=== PATIENT | female | born 1930 | race African-American/Black ===

== ENCOUNTER 2017-08-21 08:59 | Outpatient (CLI) | payer MEDICARE, MEDICAID | END 2017-08-21 09:00 | disposition home or self-care (01) | LOC: BICRAD 08:59 | PROVIDERS: ATTEND Family Medicine | DX: M81.0 Age-related osteoporosis without current pathological fracture (principal); M47.896 Other spondylosis, lumbar region; M43.8X6 Other specified deforming dorsopathies, lumbar region; M47.894 Other spondylosis, thoracic region; M43.8X4 Other specified deforming dorsopathies, thoracic region; M41.84 Other forms of scoliosis, thoracic region; I77.819 Aortic ectasia, unspecified site | CPT/HCPCS: 71045; 72072; 72100; 74018 ==

== ENCOUNTER 2017-08-22 08:54 | Outpatient (CLI) | payer MEDICARE, MEDICAID | END 2017-08-22 08:55 | disposition home or self-care (01) | LOC: BICMAMMO 08:54 | PROVIDERS: ATTEND Family Medicine | DX: M81.0 Age-related osteoporosis without current pathological fracture (principal) | CPT/HCPCS: 77080 ==

== ENCOUNTER 2017-11-25 23:17 | Inpatient (IN) | payer MEDICARE, MEDICAID ==
[2017-11-25] MEDS ORDERED: Ondansetron HCl/PF 4 MG/2 ML Vial ONE (23:54)
[2017-11-26 00:42] LABS: #Lymphocytes 0.8 thou/uL (1.20-3.40); #Monocytes 0.1 thou/uL (0.11-0.59); %Basophils 0.2 % (0.0-1.0); %Eosinophils 0.6 % (0.0-10.0); %Lymphocytes 10.8 % (21.0-51.0); %Neutrophils 86.4 % (42.0-75.0); Hemoglobin 11.8 g/dL (12.0-16.0); Mean Corpuscular HGB CONC 33.7 g/dL (32.0-36.0); Mean Corpuscular Hemoglobin 29.1 pg (27.0-31.0); Mean Corpuscular Volume 86.2 fL (78.0-98.0); Mean Platelet Volume 7.7 fL (7.4-10.4); Platelet Count 223 thou/uL (130-400); RBC Distribution Width 11.9 % (11.5-14.5); Red Blood Cell (RBC) Count 4.05 mill/uL (4.20-5.40); White Blood Cell (WBC) Count 6.9 thou/uL (4.8-10.8)
[2017-11-26 01:13] LABS: ALT (SGPT) 15 U/L (8-55); AST (SGOT) 28 U/L (5-34); Albumin 4.3 g/dL (3.4-4.8); Alkaline Phosphatase 85 U/L (40-150); Anion Gap 16 mmol/L (10-20); BUN (Urea Nitrogen) 14 mg/dL (9.8-20.1); Bilirubin, Total 0.4 mg/dL (0.2-1.2); Calc. Creatinine Clearance 0 mL/min (70-130); Calcium 10.4 mg/dL (7.8-10.44); Carbon Dioxide 23 mmol/L (23-31); Chloride 98 mmol/L (98-107); Estimated GFR-MDRD 70; Globulin 3.9 g/dL (2.4-3.5); Glucose 175 mg/dL (83-110); Lipase 48 U/L (8-78); Potassium 4.5 mmol/L (3.5-5.1); Protein, Total 8.2 g/dL (6.0-8.3); Sodium 132 mmol/L (136-145)
[2017-11-26 02:13] LABS: CKMB 1.1 ng/mL (0-6.6); Troponin I Less than 0.010 ng/mL (< 0.028)
[2017-11-26 02:13] LABS: Bilirubin Negative (Negative); Blood, Urine Negative (Negative); Clarity CLEAR (Clear); Glucose, Urine (Dipstick) Negative (Negative); Leukocyte Negative (Negative); Nitrite Negative (Negative); Protein, Urine (Dipstick) Trace mg/dL (Neg-Trace); Specific Gravity, Urine 1.007 (1.002-1.036); Urobilinogen 0.2 mg/dL (0.2-1.0); pH, Urine 7.5 (5.0-9.0)
[2017-11-26] MEDS ORDERED: Ondansetron HCl/PF 4 MG/2 ML Vial IVP PRN ×3 (06:11→12:39)
[2017-11-26] MEDS ORDERED: Lactated Ringer's 1,000 ML IV SCH (06:11)
[2017-11-26] MEDS ORDERED: Ondansetron ODT 4 MG TAB SL PRN (06:11)
[2017-11-26] MEDS ORDERED: Fentanyl 100 MCG/2 ML VIAL SLOW IVP PRN (06:12)
[2017-11-26 08:25] VITALS: BMI 19.9
--- NOTE | 2017-11-26 09:03 | HP ---
DATE OF ADMISSION: 11/26/2017 CHIEF COMPLAINT: Nausea, vomiting. HISTORY OF PRESENT ILLNESS: This is an 87-year-old female who in 2017 underwent left colectomy and c olostomy by Dr. Rosenberg for perforated diverticulitis. She has been doing quite well since then, but n ow presents with nausea, vomiting, abdominal distention. She has no abdominal pain. CT scan shows e vidence of hernia at her colostomy site. The patient denies pain this morning. Her nausea is improv ed. She has had an NG tube placed, but it is nonbilious output. PAST MEDICAL HISTORY: Includes hypertension, peripheral vascular disease, diverticulosis, diverticul itis. PAST SURGICAL HISTORY: Carotid endarterectomy, history of EGD, colonoscopy, history of total hystere ctomy, history of end-colostomy and resection of sigmoid by Dr. Rosenberg. SOCIAL HISTORY: Lives at home. She is independent. No smoking, alcohol or other drugs. MEDICINES: Include Coreg, Norvasc. ALLERGIES: No known drug allergies. FAMILY HISTORY: Nonsignificant for GI malignancy. REVIEW OF SYSTEMS: Ten system review of systems otherwise negative unless described above. PHYSICAL EXAMINATION: VITAL SIGNS: Blood pressure is 165/86, pulse 89, respirations 16. She is afebrile. HEENT: Sclerae are anicteric. Oropharynx clear. NECK: No lymphadenopathy. CHEST: Clear. HEART: Regular rate and rhythm. ABDOMEN: Soft, minimally tender in the area of the colostomy without guarding or rebound. No abdomi nal inguinal hernias. EXTREMITIES: No ischemia or edema to extremities. LABORATORY DATA AND IMAGING: White blood cell count is 6, hemoglobin 11, platelet count is 223. Cre atinine 0.92. CT scan reviewed. It does appear to be what could be a small parastomal hernia. 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 Even though she has no pain, cannot rul e out a strangulation or incarceration. PLAN: I think the safest thing to do is a laparoscopy, if she does have a loop of intestine th e colostomy could certainly become ischemic and she could be not hurting due to her advanced age. Pl an, diagnostic laparoscopy today. Risks, benefits, alternatives discussed. She gives consent. We w ill do this today.
--- NOTE | 2017-11-26 09:17 | CT ---
PRELIMINARY REPORT/[facility]/EMERGENTY AFTER-HOURS PROCEDURE CT Abdomen and Pelvis With Intravenous Contrast CLINICAL HISTORY: 87 years old, female; Signs and symptoms; Nausea and vomiting; Prior surgery; Patient HX: Er 7; Pt is a 87 yo female who presents with acute onset of emesis non bloody and non bilious no associated pain . Noted feeling dizzy at the onset. Son reported that patient has not had much output from colostomy. Colostomy has been present for 2 years. Denies chest pain, shortness of breath, fever/chil ls. No new medications or antibiotics. Surgical history of hysterectomy, carotidendarderectomy. Colos mayela TECHNIQUE: Axial computed tomography images of the abdomen and pelvis with intravenous contrast. Coronal reformatted images were created and reviewed. COMPARISON: No relevant prior studies available. FINDINGS: Lung bases: Minimal bibasilar atelectasis and/or scarring. ABDOMEN: Liver: Normal. Gallbladder and bile ducts: Normal. Pancreas: Normal. Spleen: Normal. Adrenals: Normal. Kidneys and ureters: Bilateral simple renal cysts, the largest on the left measuring approximately 2. 5 cm in diameter. Stomach and bowel: Small bowel containing parastomal hernia, with associated proximal small bowel obs truction. No evidence of bowel strangulation. Left lower quadrant colostomy. PELVIS: Appendix: No findings to suggest acute appendicitis. Bladder: Normal. Reproductive: Uterus is surgically absent. ABDOMEN and PELVIS: Intraperitoneal space: Normal. No free air. No significant fluid collection. Bones/joints: Degenerative changes of the hips and sacroiliac joints. Multilevel thoracolumbar spine degenerative changes, with dextroscoliosis of the lumbar spine. No acute fracture. No dislocation. Soft tissues: See above. Vasculature: Atherosclerotic disease of the visualized distal thoracic aorta. Extensive atherosclerot ic disease of the abdominal aorta and iliac arteries. No abdominal aortic aneurysm. Lymph nodes: Normal. IMPRESSION: 1. Small bowel containing parastomal hernia, with associated proximal small bowel obstruction. No jaycob dence of bowel strangulation. 2. Incidental/non-acute findings are described above. Thank you for allowing us to participate in the care of your patient. Dictated and Authenticated by: Steve Deutsch MD 11/26/2017 3:18 AM Central Time ([place] & [place]) FINAL REPORT CT ABDOMEN AND PELVIS WITH IV CONTRAST AND WITH ORAL CONTRAST: There is a parastomal hernia in the left anterior abdominal wall. Small bowel loops moving into this parastomal hernia are dilated and measured up to 3.4 cm. The distal small bowel loops are decompres sed. IMPRESSION: There is a parastomal anterior abdominal wall hernia on the left which is producing small bowel obstr uction. I am in agreement with the preliminary report. POS: JEAN CLAUDE
[2017-11-26] MEDS ORDERED: Carvedilol 25 MG TAB PO SCH (09:45)
[2017-11-26] MEDS ORDERED: Fentanyl 100 MCG/2 ML VIAL ONE (10:38)
[2017-11-26] MEDS ORDERED: CEFAZOLIN/Water 2 GM/20 ML SYRINGE ONE (10:41)
[2017-11-26] MEDS ORDERED: Bupivacaine/Epinephrine 0.25% 30 ML VIAL ONE (10:46)
[2017-11-26] MEDS ORDERED: Promethazine HCl 25 MG/ML VIAL SLOW IVP PRN (11:08)
[2017-11-26] MEDS ORDERED: Promethazine HCl 25 MG/ML VIAL IM PRN ×2 (11:08→12:39)
[2017-11-26] MEDS ORDERED: Meperidine HCl/PF 25 MG/ML VIAL SLOW IVP PRN (11:08)
[2017-11-26] MEDS ORDERED: Morphine 4 MG/ML VIAL SLOW IVP PRN (12:39)
[2017-11-26] MEDS ORDERED: Dextrose 50% Abboject 50 ML SYRINGE SLOW IVP PRN (12:39)
[2017-11-26] MEDS ORDERED: Dextrose 5% in Water 1,000 ML IV PRN (12:39)
[2017-11-26] MEDS ORDERED: Acetaminophen 1,000 MG in Premix Bag 1 BAG IVPB PRN (12:39)
[2017-11-26] MEDS ORDERED: Iopamidol 370 76% 50 ML VIAL FS ONE (14:00)
[2017-11-26] MEDS ORDERED: ISOVUE-370 76%-LOCM 1 ML ONE (14:00)
[2017-11-26] MEDS ORDERED: ePHEDrine/0.9% NaCl/PF SYRINGE 50 mg/10 ml ONE (15:25)
[2017-11-26] MEDS ORDERED: PHENYLEPHRINE-NS 100 MCG/ML 10 ML SYRINGE ONE (15:25)
[2017-11-26] MEDS ORDERED: Glycopyrrolate 0.2 MG/ML 5 ML SYRINGE ONE (15:25)
[2017-11-26] MEDS ORDERED: Dexamethasone 20 MG/5 ML VIAL ONE (15:25)
[2017-11-26] MEDS ORDERED: Lidocaine 1% PF 5 ML VIAL ONE (15:25)
[2017-11-26] MEDS ORDERED: Ondansetron HCl/PF 4 MG/2 ML Vial ONE (15:25)
[2017-11-26] MEDS ORDERED: PROPOFOL 200 MG/20 ML VIAL ONE (15:25)
[2017-11-26] MEDS ORDERED: Succinylcholine Chloride 20 MG/ML 10 ml SYRINGE FS ONE (15:25)
--- NOTE | 2017-11-26 16:35 | OP ---
DATE OF SERVICE: 11/26/2017 PREOPERATIVE DIAGNOSIS: Incarcerated parastomal hernia. POSTOPERATIVE DIAGNOSIS: Incarcerated parastomal hernia. PROCEDURE: Incarcerated parastomal hernia repair without mesh laparoscopic. SURGEON: Thomas Diana M.D. ANESTHESIA: General. ESTIMATED BLOOD LOSS: Minimal. COMPLICATIONS: None. SPECIMEN: None. TECHNIQUE: The patient was taken to the operating room, placed supine on the table. After general a nesthetic was obtained, a Berrios was placed. The abdomen was prepped and draped in a sterile fashion. Left subcostal 5-mm Optiview trocar placed without injury and high-flow pneumoperitoneum was obtain ed. Three right abdominal pulmonary ports were placed. Multiple adhesions are taken down in the lef t lower quadrant near the previous colostomy. There is a small bowel loop on the lateral side that i s up into the colostomy defect, they were larger than normal hole in the muscle. This would be reduc ed down without difficulty. No damage to any intraabdominal structures during the dissection, 0 V-Lo c is used to reapproximate the lateral aspect of the colostomy muscle defect. Care was taken to avoi d making it too tight against the colostomy itself. At the end of the procedure, a finger was able t o be placed through the fascial opening into the colostomy proximal mucosa without difficulty. No in jury to any intra-abdominal structures. All port sites were infiltrated using local anesthetic. All ports are removed under camera visualization and Pneumoperitoneum was let down. A 4-0 Monocryl and Dermabond used to close all skin incisions. A colostomy device is placed. The patient was en route to recovery in stable condition. All sponge counts, needle counts, lap counts were correct.
[2017-11-26] MEDS: Sodium Chloride 0.9% 1,000 ML IV SCH (17:24)
[2017-11-26] MEDS: Famotidine/PF 20 mg/2ml Vial SLOW IVP SCH (20:42)
[2017-11-26] MEDS: Enoxaparin Sodium 30 MG/0.3 ML SYRINGE SC SCH (20:43)
[2017-11-26] MEDS: Famotidine 20 MG TAB PO SCH (20:43)
[2017-11-27] MEDS: Sodium Chloride 0.9% 1,000 ML IV SCH (05:07)
[2017-11-27] MEDS: hydrALAZINE 20 MG/ML VIAL SLOW IVP PRN (05:11)
[2017-11-27 05:48] LABS: #Monocytes 0.5 thou/uL (0.11-0.59); %Eosinophils 0.3 % (0.0-10.0); %Lymphocytes 15.4 % (21.0-51.0); %Monocytes 7.8 % (0.0-10.0); %Neutrophils 76.6 % (42.0-75.0); Hemoglobin 12.8 g/dL (12.0-16.0); Mean Corpuscular HGB CONC 32.3 g/dL (32.0-36.0); Mean Corpuscular Hemoglobin 27.9 pg (27.0-31.0); Mean Corpuscular Volume 86.4 fL (78.0-98.0); Mean Platelet Volume 7.9 fL (7.4-10.4); Platelet Count 203 thou/uL (130-400); Red Blood Cell (RBC) Count 4.58 mill/uL (4.20-5.40); White Blood Cell (WBC) Count 6.6 thou/uL (4.8-10.8)
[2017-11-27] MEDS: Carvedilol 25 MG TAB PO SCH (08:35)
[2017-11-27] MEDS: Amlodipine 10 MG TAB PO SCH (08:36)
[2017-11-27] MEDS: Famotidine/PF 20 mg/2ml Vial SLOW IVP SCH ×2 (08:36→20:10)
[2017-11-27] MEDS: Famotidine 20 MG TAB PO SCH ×2 (08:36→23:40)
[2017-11-27] MEDS ORDERED: Sodium Chloride 0.9% 1,000 ML IV SCH (10:02)
--- NOTE | 2017-11-27 10:03 | PDOC.GSPN ---
Surgery Progress Note: Subj - Subjective Patient reports: no new complaints, tolerating liquids well Surgery Progress Note: Obj - Vital signs Vital signs: Vital Signs - Most Recent Temp Pulse Resp BP Pulse Ox 98.5 F 85 14 165/82 H 98 11/27/17 09:29 11/27/17 09:29 11/27/17 09:29 11/27/17 08:36 11/27/17 09:29 - Physical Exam General: no distress Respiratory: clear to auscultation Abdomen: soft, non tender, appropriately tender Wound: healing well (colostomy, no stool, viable) Surgery Progress Note: Results - Labs Result Diagrams: 11/27/17 05:13 11/25/17 00:20 Lab results: Laboratory Results - last 24 hr 11/27/17 05:13 WBC 6.6 RBC 4.58 Hgb 12.8 Hct 39.6 MCV 86.4 MCH 27.9 MCHC 32.3 RDW 12.0 Plt Count 203 MPV 7.9 Neutrophils % 76.6 H Lymphocytes % 15.4 L Monocytes % 7.8 Eosinophils % 0.3 Basophils % 0.0 Neutrophils # 5.0 Lymphocytes # 1.0 L Monocytes # 0.5 Eosinophils # 0.0 Basophils # 0.0 Surgery Progress Note: A/P - Problem (1) Parastomal hernia Current Visit: Yes Code(s): K43.5 - PARASTOMAL HERNIA WITHOUT OBSTRUCTION OR GANGRENE Status: Acute - Plan Plan: Full liquids, ambulate with walking program
[2017-11-27] MEDS ORDERED: Milk Of Magnesia 30 ML UDCUP PO SCH (10:15)
[2017-11-27] MEDS: Enoxaparin Sodium 30 MG/0.3 ML SYRINGE SC SCH (20:10)
[2017-11-28] MEDS: Famotidine 20 MG TAB PO SCH ×2 (07:57→20:26)
[2017-11-28] MEDS: Famotidine/PF 20 mg/2ml Vial SLOW IVP SCH ×2 (07:57→23:11)
[2017-11-28] MEDS: Carvedilol 25 MG TAB PO SCH (07:57)
[2017-11-28] MEDS: Amlodipine 10 MG TAB PO SCH (07:57)
[2017-11-28] MEDS ORDERED: traMADol HCl 50 MG TAB PO PRN ×2 (13:00)
--- NOTE | 2017-11-28 13:10 | PRG ---
DATE OF SERVICE: 11/28/2017 SUBJECTIVE: Ms. Ponce is doing well today. She tolerated the full liquid. She is having stool in h er bag now. OBJECTIVE: ABDOMEN: Soft, minimally distended. Her wounds are healing well. There is stool in her bag. ASSESSMENT: Postop day #2, repair of parastomal hernia. The small-bowel obstruction, resolved. PLAN: Advance to GI soft diet. Likely home tomorrow.
[2017-11-28] MEDS: Enoxaparin Sodium 30 MG/0.3 ML SYRINGE SC SCH (20:26)
[2017-11-29] MEDS: hydrALAZINE 20 MG/ML VIAL SLOW IVP PRN (04:18)
[2017-11-29] MEDS: Famotidine/PF 20 mg/2ml Vial SLOW IVP SCH (09:00)
[2017-11-29] MEDS: Famotidine 20 MG TAB PO SCH (09:03)
[2017-11-29] MEDS: Amlodipine 10 MG TAB PO SCH (09:03)
[2017-11-29] MEDS: Carvedilol 25 MG TAB PO SCH (09:03)
[2017-11-29 11:08] VITALS: BP 116/69; TEMP 98.4
--- NOTE | 2017-11-29 12:00 | DIS ---
DATE OF ADMISSION: 11/26/2017 DATE OF DISCHARGE: 11/29/2017 ADMITTING DIAGNOSIS: Parastomal hernia, incarcerated. DISCHARGE DIAGNOSIS: Parastomal hernia, incarcerated. PROCEDURES: Laparoscopic parastomal hernia repair without mesh by Dr. Diana without complication. STAFF: Dr. Thomas Diana. CONDITION ON DISCHARGE: Improved. HOSPITAL COURSE: On postoperative day #3, the patient is doing well. She is tolerating regular food . She is having stool in her bag. No pain and she is not requesting any pain medicine after dischar ge. Her wounds are healing well. Her ostomy is viable with a small amount of stool in the bag. She is to be discharged home. She states that she has tramadol at home that she can take p.r.n. I gualberto mmended she take Milk of Magnesia every few days if not having much bowel and colostomy output. She will return to see me in 2 weeks.
--- NOTE | 2017-11-30 13:30 | EKG ---
Test Reason : Blood Pressure : / mmHG Vent. Rate : 070 BPM Atrial Rate : 070 BPM P-R Int : 196 ms QRS Dur : 092 ms QT Int : 426 ms P-R-T Axes : 057 021 077 degrees QTc Int : 460 ms Normal sinus rhythm No STEMI Confirmed by NADINE Rai, HUGO ([id number]), content editor ROXANE CORTEZ ([id number] on 11/30/2017 1:29:54 PM Referred By: Confirmed By:HUGO MCCOY M.D.
== END 2017-11-29 14:26 | disposition home or self-care (01) | DRG 355 ==
LOC: ERS 23:17 → SURG A 11-26 04:00
PROVIDERS: ADMIT Surgery; ATTEND Surgery
PROC: 0WQF4ZZ Repair Abdominal Wall, Percutaneous Endoscopic Approach (ICD-10-PCS; principal; 2017-11-26)
DX: K43.3 Parastomal hernia with obstruction, without gangrene (principal); Z93.3 Colostomy status; I10 Essential (primary) hypertension; I49.3 Ventricular premature depolarization; Z79.899 Other long term (current) drug therapy; K57.90 Diverticulosis of intestine, part unspecified, without perforation or abscess without bleeding
CPT/HCPCS: 36415; 74177; 80053; 81003; 82553; 83605; 83690; 84484; 85025; 93005; 96361; 96374; J0360; J1100; J1650; J2001; J2405; J2704; J3010; S0028